=== PATIENT | male | born 1970 | race Caucasian/White ===

== ENCOUNTER 2023-05-09 10:08 | Emergency (ER) | payer OTHER ==
[~2023-05-09] VITALS: Ht 167.6 cm; Wt 58.0 kg
[~2023-05-09 10:08] MED LIST: AMI2 PO; ASPI-1160 PO; CEFD300C3 MT; CLOP-31 PO; DOXY100T2 MT; FURO40TA5 PO; LIP40 PO; METR-167 MT; MIDO10TA MT
[2023-05-09 10:15] VITALS: O2SAT 99
[2023-05-09 11:39] LABS: HEMATOCRIT. 26.6 % (42.0-52.0); HEMOGLOBIN. 8.6 g/dL (14.0-18.0); MEAN CORPUSCULAR HGB CONC 32.1 g/dL (31.0-37.0); MEAN PLATELET VOLUME 10.1 fl (7.4-10.4); PLATELET 320 x1000/uL (130-400); RED BLOOD CELL COUNT 3.06 mill/uL (4.7-6.1); RED CELL DISTRIBUTION WIDTH 17.2 % (11.6-14.6); WHITE BLOOD COUNT 14.9 x1000/uL (4.5-11.0)
[2023-05-09 11:48] LABS: DIFFERENTIAL COMMENT 1
[2023-05-09 11:54] LABS: INR 1.3; PARTIAL THROMBOPLASTIN TIME 28.1 sec (23.4-31.0); PROTHROMBIN TIME 13.5 sec (9.6-11.0)
[2023-05-09 11:56] LABS: ALANINE AMINOTRANSFERASE 64 IU/L (10-49); ALBUMIN 3.2 g/dL (3.2-4.8); ASPARTATE AMINOTRANSFERASE 21 IU/L (<34); BILIRUBIN TOTAL 0.4 mg/dL (0.1-1.0); CALCIUM 8.6 mg/dL (8.7-10.4); CARBON DIOXIDE 30 mEq/L (21-32); CHLORIDE 100 mEq/L (98-107); CREATININE 1.1 mg/dL (0.6-1.3); GLUCOSE 90 mg/dL (70-105); POTASSIUM 3.5 mEq/L (3.5-5.1); SODIUM 137 mEq/L (136-145); UREA NITROGEN BLOOD 46 mg/dL (9-23)
[2023-05-09 12:36] LABS: PLATELET ESTIMATE NORMAL
[2023-05-09 12:37] LABS: ANISOCYTOSIS 3+; HYPOCHROMASIA 1+
[2023-05-09] MEDS ORDERED: FUROSEMIDE 40MG/4ML VIAL IVP NR (15:45)
[2023-05-09] MEDS ORDERED: AMIODARONE HCL 200 MG TABLET PO SCH (15:45)
[2023-05-09] MEDS ORDERED: MIDODRINE HCL 5MG TABLET PO SCH (15:45)
[2023-05-09] MEDS ORDERED: ASPIRIN 81MG TABLET PO NR (16:15)
[2023-05-09] MEDS ORDERED: PIPERACILLIN/TAZ 3.375G PREMIX 50 ML IV ONE (16:15)
[2023-05-09] MEDS ORDERED: CLOPIDOGREL 75MG TABLET PO NR (16:15)
[2023-05-09 18:49] LABS: HEMATOCRIT 26.2 % (42.0-52.0); HEMOGLOBIN 8.6 g/dL (14.0-18.0); MEAN CORPUSCULAR HEMOGLOBIN 28.6 pg (28.0-32.0); MEAN CORPUSCULAR HGB CONC 32.8 g/dL (31.0-37.0); MEAN CORPUSCULAR VOLUME 87.3 fL (80.0-94.0); PLATELET 301 x1000/uL (130-400); RED CELL DISTRIBUTION WIDTH 17.2 % (11.6-14.6); WHITE BLOOD COUNT 14.7 x1000/uL (4.5-11.0)
[2023-05-09] MEDS ORDERED: METRONIDAZOLE 500 MG PREMIX 100 ML IV ONE (19:30)
[2023-05-09 21:15] VITALS: BP 101/67; PULSE 89; RESP 16; TEMP 98.1
[2023-05-10] MEDS ORDERED: ASPIRIN 81MG TABLET PO SCH (09:00)
[2023-05-10] MEDS ORDERED: CLOPIDOGREL 75MG TABLET PO SCH (09:00)
[2023-05-10] MEDS ORDERED: FUROSEMIDE 40MG/4ML VIAL IVP SCH (09:00)
== END 2023-05-09 21:24 | disposition short-term general hospital (02) ==
LOC: ER 10:08
DX: K55.9 Vascular disorder of intestine, unspecified (principal); D64.9 Anemia, unspecified; I25.10 Atherosclerotic heart disease of native coronary artery without angina pectoris; I10 Essential (primary) hypertension; E78.00 Pure hypercholesterolemia, unspecified; E11.9 Type 2 diabetes mellitus without complications; Z98.890 Other specified postprocedural states
CPT/HCPCS: 80053; 83605; 83690; 85027; 85025; 85610; 85730; 86850; 86900; 86901; 36415; 74177; 96365; 96375; 99291; J1940; J2543; Z7610 ×3